=== PATIENT | male | born 1970 | race African-American/Black ===

== ENCOUNTER 2021-02-15 16:40 | Emergency (ER) | payer OTHER, SELFPAY ==
[2021-02-15 16:48] VITALS: BP 154/92; PULSE 83; RESP 20; TEMP 37.1; O2SAT 98
--- NOTE | 2021-02-15 17:00 | ED.NAVMDI ---
HPI - Nausea/Vomiting/Diarrhea General Chief complaint: Nausea/Vomiting/Diarrhea Stated complaint: stomach pain Time Seen by Provider: 02/15/21 17:00 Source: patient and RN notes reviewed Mode of arrival: ambulatory Limitations: no limitations History of Present Illness HPI Narrative: 50-year-old male presents with concern for right lower quadrant abdominal pain for 4 days. He reports for 4 days he has had a right lower quadrant abdominal pain that hurts when he sits and stands/gets in and out of hyper truck. He reports the pain has slightly improved over the last day, however he still notices it. He reports normal bowel movements, denies nausea or vomiting. Denies decreased appetite. He reports he has been taking Gas-X and Dulcolax with no relief. He denies body aches, chills, fevers, sweats. He denies chest pain or shortness of breath MD elicited complaint: abdominal pain Related Data Home Medications Medication Instructions Recorded Confirmed amlodipine 10 mg PO DAILY 02/15/21 02/15/21 atenolol 50 mg PO DAILY 02/15/21 02/15/21 hydralazine 100 mg PO QID 02/15/21 02/15/21 Allergies Allergy/AdvReac Type Severity Reaction Status Date / Time No Known Allergies Allergy Unverified 02/15/18 11:46 Review of Systems Review of Systems: CONSTITUTIONAL: Denies malaise, chills, sweats, or fever. CARDIOVASCULAR: Denies chest pain, palpitations, or edema. RESPIRATORY: Denies cough or dyspnea. GASTROINTESTINAL: Reports right lower quadrant abdominal tenderness. Nausea, vomiting, diarrhea, constipation, fibrosis present bloody, or mucous stools. GENITOURINARY: Denies dysuria or hematuria. Denies testicular pain, swelling, redness, hematuria, urine frequency, urine urgency MUSCULOSKELETAL: Denies back pain or myalgia. All systems reviewed & are unremarkable except as noted in HPI and below PMFSH Social History Social History Smoking status: Never smoker Second hand tobacco smoke exposure: No Alcohol intake: current Comments At time of signature, agree with nursing past medical, surgical, social and family history. There is no relevant family history pertinent to the presenting complaint Exam Narrative: GENERAL: Well-appearing, well-nourished, and in no acute distress. HEAD: Normocephalic, atraumatic. EYES: PERRLA, conjunctivae clear, and EOMI. ENT: Mucous membranes moist. NECK: Supple. No lymphadenopathy CHEST: Speaks in full sentences. No respiratory distress. HEART: Regular rate and rhythm. ABDOMEN: Soft, obese, nondistended. No guarding, rebound tenderness, or rigid. Mild right lower quadrant tenderness, mild right upper quadrant tenderness. No pulsatilla masses. Bowel sounds present in all four quadrants. No organomegaly. Negative White?s sign. No periumbilical tenderness. No Supra public tenderness or distension.No hernia noted. No scars or surface trauma. SKIN: Warm, dry, no rash. NEURO: Alert and oriented x3. PSYCH: Normal mood and affect Course Course Emergency Course: Patient is aware of diagnosis, understands and agrees to treatment plan. Anticipatory guidance given. Patient agrees to follow-up as directed and is aware of reasons to seek care at the emergency department. Portions of this record may have been created with voice recognition software Vital Signs Vital signs: Vital Signs Temperature 98.8 F 02/15/21 16:48 Pulse Rate 83 02/15/21 16:48 Respiratory Rate 20 02/15/21 16:48 Blood Pressure 154/92 H 02/15/21 16:48 Pulse Oximetry 98 02/15/21 16:48 Temperature 98.8 F 02/15/21 16:48 Pulse Rate 83 02/15/21 16:48 Respiratory Rate 20 02/15/21 16:48 Blood Pressure 154/92 H 02/15/21 16:48 Pulse Oximetry 98 02/15/21 16:48 Reviewed. MDM - Nausea/Vomiting/Diarrhea MDM Narrative Medical decision making narrative: Discussed with patient limited [facility]. Discussed options for transfer to the emergency department or follow-
== END 2021-02-15 17:15 | disposition home or self-care (01) ==
PROVIDERS: Emergency Provider Nurse Practitioner
DX: R10.31 Right lower quadrant pain (principal); I10 Essential (primary) hypertension
CPT/HCPCS: 99211; G0463